=== PATIENT | female | born 1985 | race Caucasian/White ===

== ENCOUNTER → 2021-08-02 | Outpatient (CLI) | payer OTHER ==
--- NOTE | 2021-08-02 12:31 | US ---
EXAMINATION TYPE: US venous doppler duplex LE DATE OF EXAM: 08/02/2021 9:08 AM COMPARISON: NONE CLINICAL HISTORY: 36-year-old female Type 2 diabetes. Type 2 diabetes. No hx of DVT. Patient does not take blood thinners. SIDE PERFORMED: Bilateral TECHNIQUE: The lower extremity deep venous system is examined utilizing real time linear array sonog wily with graded compression, doppler sonography and color-flow sonography. FINDINGS: VESSELS IMAGED: Common Femoral Vein Deep Femoral Vein Greater Saphenous Vein * Femoral Vein Popliteal Vein Small Saphenous Vein * Proximal Calf Veins (* superficial vessels) Right Leg: No evidence of DVT in veins imaged at this time. Left Leg: No evidence of DVT in veins imaged at this time. IMPRESSION: No evidence for DVT within the bilateral lower extremities imaged from the groin to the upper calves.
--- NOTE | 2021-08-03 09:47 | P.ARTDOP ---
Arterial Doppler LOWER EXTREMITY ARTERIAL DOPPLER: DATE OF SERVICE: 08/02/2021 Reason for study: Right ankle ulcer. Doppler waveforms: Multiphasic bilaterally with good toe waveforms. Pulse volume recording: []. Pressure gradients: None. Ankle-brachial indices: Greater than 1 bilaterally. Toe brachial indices: 0.61 on the right, 0.65 on the left Impression: Normal study.
== END | disposition home or self-care (01) ==
LOC: RADUSWWP 08:38
PROVIDERS: ATTEND Internal Medicine Infectious Disease
DX: E11.622 Type 2 diabetes mellitus with other skin ulcer (principal); E11.65 Type 2 diabetes mellitus with hyperglycemia
CPT/HCPCS: 93922; 93970

== ENCOUNTER → 2021-08-09 | Outpatient (CLI) | payer OTHER ==
--- NOTE | 2021-08-09 10:03 | US ---
EXAMINATION TYPE: US liver DATE OF EXAM: 08/09/2021 COMPARISON: NONE CLINICAL HISTORY: R94.5 abnormal liver function tests. Abnormal LFT's, pt states h/o ETOH abuse EXAM MEASUREMENTS: Liver Length: 19.9 cm Gallbladder Wall: 0.2 cm CBD: 0.2 cm Right Kidney: 12.6 x 4.5 x 4.7 cm Pancreas: wnl, distal body and tail obscured by overlying bowel gas Liver: Enlarged, heterogeneous Gallbladder: wnl Evidence for sonographic Mckeon's sign: No CBD: wnl Right Kidney: wnl Visualized visualized portion of pancreas within normal limits. Liver is heterogeneously hyperechoic. Gallbladder somewhat contracted without intraluminal mobile shadowing gallstones. No right-sided hyd ronephrosis. IMPRESSION: Heterogeneous hyperechoic appearance of liver consistent with diffuse fatty infiltration and/or underlying hepatocellular disease.
== END | disposition home or self-care (01) ==
LOC: RADUSWWP 09:27
PROVIDERS: ATTEND Internal Medicine
DX: R94.5 Abnormal results of liver function studies (principal)
CPT/HCPCS: 76705

== ENCOUNTER 2023-12-30 12:49 | Emergency (ER) | payer SELFPAY ==
[2023-12-30 13:23] VITALS: RESP 16
[2023-12-30 13:29] LABS: Glucose,Whole Blood 334 mg/dL (70-110)
--- NOTE | 2023-12-30 13:34 | ED ---
Neuro HPI - General Chief Complaint: Neuro Symptoms/Deficit Stated Complaint: L hand numbness,Hypertension Time Seen by Provider: 12/30/23 13:13 Source: patient Mode of arrival: ambulatory Limitations: no limitations - History of Present Illness Last Known Well Date: 12/28/23 Last Known Well Time: 22:00 Initial Comments: Patient is a 38-year-old female, past medical history presenting today for left hand numbness. Patient states on 719 her symptoms started with a typical panic attack. She had an episode of nonbloody nonbilious emesis, felt anxious, triggered by pulm life stressors. Sunday morning she noticed left hand numbness upon waking. She thought she had slept on her hand wrong, took her ring off and the left hand numbness persisted today. Feels like tingling. Denies weakness. This morning again had another episode of nonbilious nonbloody bilious emesis. Tingling in her left hand persisted and seem to spread up to her distal wrist. She called a friend whose friend is a nurse and directed patient to the emergency department. Patient denies slurred speech, changes in vision, numbness or weakness elsewhere, lightheadedness, dizziness, palpitations, chest pain, shortness of breath, headache, fevers, abdominal pain, diarrhea. She has no history of prior strokes. Does not taking medications every day. Typically for anxiety she will sometimes smoke marijuana or take a T HC gummy. - Related Data Home Medications: Home Medications Medication Instructions Recorded Confirmed No Known Home Medications 12/30/23 12/30/23 Allergies/Adverse Reactions: Allergies Allergy/AdvReac Type Severity Reaction Status Date / Time No Known Allergies Allergy Verified 12/30/23 14:19 Review of Systems ROS Statement: Those systems with pertinent positive or pertinent negative responses have been documented in the HPI. ROS Other: All systems not noted in ROS Statement are negative. Constitutional: Reports: chills. Denies: fever, weakness Eyes: Denies: vision change Cardiovascular: Denies: chest pain, palpitations, dyspnea on exertion Gastrointestinal: Reports: nausea, vomiting. Denies: abdominal pain, diarrhea, hematemesis Musculoskeletal: Denies: joint swelling Neurological: Reports: numbness. Denies: headache, weakness, paresthesias, confusion, vertigo Psychiatric: Reports: anxiety General Exam - General Exam Comments Initial Comments: PE: CONSTITUTIONAL: no apparent distress, well appearing SKIN: warm, dry, no jaundice, hives or petechiae EYES: pupils are equally round, extraocular movements intact without nystagmus, clear conjunctiva, non-icteric sclera HENT: normocephalic, atraumatic, moist mucus membranes, oropharynx clear without exudates NECK: Nontender and supple with no nuchal rigidity, no lymphadenopathy, full range of motion. Carotid bruits. PULMONARY: clear to auscultation without wheezes, rhonchi, or rales, normal excursion, no accessory muscle use and no stridor CARDIOVASCULAR: regular rate, rhythm, normal S1 and S2. No appreciated murmurs. Strong radial pulses with intact distal perfusion GASTROINTESTINAL: soft, non-tender, non-distended, no palpable masses, no rebound or guarding LYMPHATICS: no edema in lower extremities, no lymphadenopathy MUSCULOSKELETAL: Extremities have no gross deformity, no edema, redness, or swelling. Left hand and wrist has no deformity, is nontender to palpation, no evidence of injury NEUROLOGIC: _a/o x 3, GCS 15, normal mentation and speech. Moves all extremities x 4 without motor or sensory deficit, with exception of left hand numbness noted below Cranial nerves: II (visual villarreal without defects), III, IV and (extraocular movements are intact, pupils are equal with normal reaction to light), V (intact facial sensation and jaw opening), VII (no facial droop), IX and X (normal palate movement, midline uvula, normal voice), XI (symmetrical shoulder shrug and lateral head rotation against resistance), XII (midline tongue protrusion). Motor strength is 5/5 in all extremities. Equal printed circuit board designer strength bilaterally. No abnormal movements. Normal muscle tone. Sensation to light touch is intact bilat erally, with exception of left hand. Endorses decrease sensation throughout entire left hand, both palmar and dorsal aspects, sensation intact and equal in remainder of extremity proximal to this. No cerebellar signs ([id number], [id number] are normal) PSYCHIATRIC: _normal mood and affect, thought process is clear and linear Limitations: no limitations Stroke MDM - Lab Data Result diagrams: 12/30/23 13:43 12/30/23 13:43 Lab Results 12/30/23 12/30/23 12/30/23 Range/Units 13:26 13:43 13:43 WBC 5.1 (3.8-10.6) k/uL RBC 4.22 (3.80-5.40) m/uL Hgb 14.1 (11.4-16.0) gm/dL Hct 41.3 (34.0-46.0) % MCV 97.9 (80.0-100.0) fL MCH 33.4 (25.0-35.0) pg MCHC 34.1 (31.0-37.0) g/dL RDW 11.8 (11.5-15.5) % Plt Count 127 L (150-450) k/uL MPV 8.8 Neutrophils % 61 % Lymphocytes % 29 % Monocytes % 5 % Eosinophils % 3 % Basophils % 0 % Neutrophils # 3.1 (1.3-7.7) k/uL Lymphocytes # 1.5 (1.0-4.8) k/uL Monocytes # 0.3 (0-1.0) k/uL Eosinophils # 0.2 (0-0.7) k/uL Basophils # 0.0 (0-0.2) k/uL PT 10.8 (10.0-12.5) sec INR 1.0 (<1.2) APTT 22.3 (22.0-30.0) sec Sodium (137-145) mmol/L Potassium (3.5-5.1) mmol/L Chloride (98-107) mmol/L Carbon Dioxide (22-30) mmol/L Anion Gap mmol/L BUN (7-17) mg/dL Creatinine (0.52-1.04) mg/dL Est GFR (CKD-EPI)AfAm (>60 ml/min/1.73 sqM) Est GFR (CKD-EPI)NonAf (>60 ml/min/1.73 sqM) Glucose (74-99) mg/dL POC Glucose (mg/dL) 334 H (70-110) mg/dL POC Glu Supervisor Body Assembly ID [email or web address] canoel Calcium (8.4-10.2) mg/dL Total Bilirubin (0.2-1.3) mg/dL AST (14-36) U/L ALT (4-34) U/L Alkaline Phosphatase (38-126) U/L Creatine Kinase (30-135) U/L Troponin I (0.000-0.034) ng/mL Total Protein (6.3-8.2) g/dL Albumin (3.5-5.0) g/dL TSH (0.465-4.680) mIU/L HCG, Qual Urine Color Urine Appearance (Clear) Urine pH (5.0-8.0) Ur Specific [place] (1.001-1.035) Urine Protein (Negative) Urine Glucose (UA) (Negative) Urine Ketones (Negative) Urine Blood (Negative) Urine Nitrite (Negative) Urine Bilirubin (Negative) Urine Urobilinogen (<2.0) mg/dL Ur Leukocyte Esterase (Negative) Urine RBC (0-5) /hpf Urine WBC (0-5) /hpf Ur Squamous Epith Cells (0-4) /hpf Urine Bacteria (None) /hpf 12/30/23 12/30/23 12/30/23 Range/Units 13:43 13:43 16:18 WBC (3.8-10.6) k/uL RBC (3.80-5.40) m/uL Hgb (11.4-16.0) gm/dL Hct (34.0-46.0) % MCV (80.0-100.0) fL MCH (25.0-35.0) pg MCHC (31.0-37.0) g/dL RDW (11.5-15.5) % Plt Count (150-450) k/uL MPV Neutrophils % % Lymphocytes % % Monocytes % % Eosinophils % % Basophils % % Neutrophils # (1.3-7.7) k/uL Lymphocytes # (1.0-4.8) k/uL Monocytes # (0-1.0) k/uL Eosinophils # (0-0.7) k/uL Basophils # (0-0.2) k/uL PT (10.0-12.5) sec INR (<1.2) APTT (22.0-30.0) sec Sodium 136 L (137-145) mmol/L Potassium 4.0 (3.5-5.1) mmol/L Chloride 102 (98-107) mmol/L Carbon Dioxide 24 (22-30) mmol/L Anion Gap 10 mmol/L BUN 7 (7-17) mg/dL Creatinine 0.49 L (0.52-1.04) mg/dL Est GFR (CKD-EPI)AfAm >90 (>60 ml/min/1.73 sqM) Est GFR (CKD-EPI)NonAf >90 (>60 ml/min/1.73 sqM) Glucose 317 H (74-99) mg/dL POC Glucose (mg/dL) (70-110) mg/dL POC Glu Supervisor Body Assembly ID Calcium 9.4 (8.4-10.2) mg/dL Total Bilirubin 1.4 H (0.2-1.3) mg/dL AST 301 H (14-36) U/L ALT 198 H (4-34) U/L Alkaline Phosphatase 93 (38-126) U/L Creatine Kinase 132 (30-135) U/L Troponin I <0.012 (0.000-0.034) ng/mL Total Protein 7.5 (6.3-8.2) g/dL Albumin 4.3 (3.5-5.0) g/dL TSH 1.490 (0.465-4.680) mIU/L HCG, Qual Not Detected Urine Color Light Yellow Urine Appearance Clear (Clear) Urine pH 7.0 (5.0-8.0) Ur Specific [place] >1.050 H (1.001-1.035) Urine Protein Trace H (Negative) Urine Glucose (UA) 3+ H (Negative) Urine Ketones Negative (Negative) Urine Blood Moderate H (Negative) Urine Nitrite Negative (Negative) Urine Bilirubin Negative (Negative) Urine Urobilinogen <2.0 (<2.0) mg/dL Ur Leukocyte Esterase Moderate H (Negative) Urine RBC 2 (0-5) /hpf Urine WBC 1 (0-5) /hpf Ur Squamous Epith Cells 12 H (0-4) /hpf Urine Bacteria Rare H (None) /hpf - NIH Stroke Scale 1a. Level of Consciousness: (0) alert 1b. LOC Questions: (0) answers correctly 1c. LOC Commands: (0) performs tasks correctly 2. Best Gaze: (0) normal 3. Visual: (0) no visual loss 4. Facial Palsy: (0) normal symmetrical movement 5a. Motor Arm Left: (0) no drift 5b. Motor Arm Right: (0) no drift 6a. Motor Leg Left: (0) no drift 6b. Motor Leg Right: (0) no drift 7. Limb Ataxia: (0) absent 8. Sensory: (1) mild/moderate sensory loss (descreased sensation in left hand compared to right) 9. Best Language: (0) no aphasia 10. Dysarthria: (0) normal 11. Extinction/Inattention: (0) no abnormality - Thrombolytic Inclusion/Exclusion Thrombolytic Exclusion Criteria: Symptom Onset > 4.5 Hours - Medical Decision Making Was pt. sent in by a medical professional or institution (, PA, FOOD PROCESSING CHEMIST, urgent care, hospital, or senior care...) When possible be specific @ -[No] Did you speak to anyone other than the patient for history (EMS, parent, family, police, friend...)? What history was obtained from this source @ -[No] Did you review nursing and triage notes (agree or disagree)? Why? @ -[I reviewed and agree with nursing and triage notes] Were old charts reviewed (outside hosp., previous admission, EMS record, old EKG, old radiological studies, urgent care reports/EKG's, senior care records)? Report findings @ -[No old charts were reviewed] Differential Diagnosis (chest pain, altered mental status, abdominal pain women, abdominal pain men, vaginal bleeding, weakness, fever, dyspnea, syncope, headache, dizziness, GI bleed, back pain, seizure, CVA, palpatations, mental health, musculoskeletal)? @ -Differential diagnosis remains broad however top considerations include peripheral neuropathy, recent CVA, intracranial mass, [hypertensive emergency], anxiety, electrolyte abnormality, this is meant to be an all-inclusive list EKG interpreted by me (3pts min.). @ -[As above] X-rays interpreted by me (1pt min.). @ -[None done] CT interpreted by me (1pt min.). @ -[None done] U/S interpreted by me (1pt. min.). @ -[None done] What testing was considered but not performed or refused? (CT, X-rays, U/S, labs)? Why? @ -[None] What meds were considered but not given or refused? Why? @ -[None] Did you discuss the management of the patient with other professionals (professionals i.e. , BETO, FOOD PROCESSING CHEMIST, lab, RT, psych nurse, web content & social media manager, telephone information supervisor, teacher, lead security officer, immigration case worker)? Give summary @ -[No] Was smoking cessation discussed for >3mins.? @ -[No] Was critical care preformed (if so, how long)? @ -[No] Were there social determinants of health that impacted care today? How? (Homelessness, low income, unemployed, alcoholism, drug addiction, transportation, low edu. Level, literacy, decrease access to med. care, fpc, rehab)? @ -[No] Was there de-escalation of care discussed even if they declined (Discuss DNR or withdrawal of care, Hospice)? DNR status @ -[No] What co-morbidities impacted this encounter? (DM, HTN, Smoking, COPD, CAD, Cancer, CVA, ARF, Chemo, Hep., AIDS, mental health diagnosis, sleep apnea, morbid obesity)? @ -[None] Was patient admitted / discharged? Hospital course, mention meds given and route, prescriptions, significant lab abnormalities, going to OR and other pertinent info. @ -[hospital course] Patient is a 38-year-old female presenting today for greater than 24 hours of left hand numbness, feels likely secondary to anxiety, presents at direction of friend friend who is a nurse. Patient alert was not called on the patient due to duration of symptoms and low NIH. Physical exam significant for decree sensation to palmar and dorsal aspects of left hand, does not appear to follow dermatomal distribution. No injury or tenderness palpation of the left hand or wrist. No tenderness with patient throughout the neck. Patient currently denies neck pain. No carotid bruits. Differential diagnosis of breath, will ob tain CT brain, CTA neck, troponin, chest x-ray, coagulation studies, TSH, CBC, CMP, IV fluids, Valium. Patient is hypertensive on arrival and tachycardic. Does not take Urinalysis reviewed, shows blood leukocyte esterase, glucose, patient denies dysuria or urinary frequency. He is currently menstruating. Discussed hyperglycemia and the importance of following with primary care provider. Kayla ent was also placed in a small wrist splint out of concern that symptoms could be secondary to carpal tunnel syndrome. Discussed with patient signs symptoms when to return to the ER In my medical judgment there is currently no evidence of an immediate life- threatening or surgical condition. Discharge is therefore indicated at this time. [Discharge treatment instructions, follow up instructions, and appropriate emergency department return precautions were discussed with the patient and/or m edical decision maker. Patient and/or medical decision maker expressed understanding of and agreed with the treatment plan, follow up instructions, and emergency department return precaution. All patient's and/or medical decision maker's questions were answered.] [The patient was advised that a small risk still exists that a serious condition could develop and was therefore instructed to return to the ED for any changes in symptoms, persistent symptoms, inability to obtain proper follow-up or for any further concerns. Patient received verbal and written instructions for this condition.] Undiagnosed new problem with uncertain prognosis? @ -[No] Drug Therapy requiring intensive monitoring for toxicity (Heparin, Nitro, Insulin, Cardizem)? @ -[No] Were any procedures done? @ -[No] Diagnosis/symptom? @ -[default] Acute, or Chronic, or Acute on Chronic? @ -[default] Uncomplicated (without systemic symptoms) or Complicated (systemic symptoms)? @ -[default] Side effects of treatment? @ -[No] Exacerbation, Progression, or Severe Exacerbation? @ -[No] Poses a threat to life or bodily function? How? (Chest pain, [place], [place], pneumonia, PE, COPD, DKA, ARF, appy, cholecystitis, CVA, Diverticulitis, Homicidal, Suicidal, threat to staff... and all critical care pts) @ -[No] Sinus rhythm Heart rate 97 bpm NH 169 ms QT/QTc 346/400 ms Normal axis Artifact present no ST elevations or depressions, no arrhythmia No EKG for comparison Past Medical History Past Medical History: Diabetes Mellitus Past Surgical History: No Surgical Hx Reported Past Psychological History: Anxiety Smoking Status: Current every day smoker Past Alcohol Use History: Daily Past Drug Use History: Marijuana Course Vital Signs 12/30/23 12/30/23 12/30/23 12:52 13:06 15:00 Temperature 98.4 F 99.9 F H 98.7 F Pulse Rate 106 H 104 H 93 Respiratory 18 16 16 Rate Blood Pressure 185/86 171/96 146/74 O2 Sat by Pulse 98 96 95 Oximetry - Reevaluation(s) Reevaluation #1: Platelets 127, sodium 136, GFR greater than 90, glucose 317, total bilirubin 1.4, AST/ALT 301/198. Ordered ultrasound of the liver and gallbladder. Though liver enzyme elevations do appear consistent with alcohol use 12/30/23 14:13 Reevaluation #2: Analysis reviewed, shows specific gravity greater than 1.050, trace protein, 3+ glucose, moderate ketones, moderate leukocyte esterase 12/30/23 16:47 Disposition Clinical Impression: Numbness of left hand, Hyperglycemia, Elevated liver enzymes Disposition: HOME SELF-CARE Condition: Good Additional Instructions: Every disease is a spectrum and a small chance still exists that a serious condition could develop, for this reason, please monitor yourself closely for new, changing or worsening symptoms, symptoms that persist beyond 72 hours, failure symptoms to improve, slurred speech, changes in vision, new numbness or weakness, facial droop, sudden onset headache or headache that you have never had before, fever, chest pain, shortness of breath, inability to tolerate/keep down fluids or your medications, inability to follow up with outpatient providers as instructed and should you experience these symptoms or should you have any further concerns for your wellbeing please return to the ED or call 911 immediately. Please maintain wrist [place] wrap as needed for comfort, and at night . Please try to cut back on alcohol intake gradually Please follow-up with one of the primary care providers listed to establish with a PCP PLEASE call your primary care physician as soon as possible to arrange / discuss plan for followup appointment. Appointment in the next 1-3 days is strongly encouraged if possible. PLEASE let us know here before you leave if there is anything further we can do to be of any assistance. Take care and feel Better! Is patient prescribed a controlled substance at d/c from ED?: No Referrals: Aminta Ferrari NPC [REFERRING] - 1-2 days Kyrie Ayala DO [REFERRING] - 1-2 days Forms: [facility], [facility]
[2023-12-30 13:55] LABS: Basophils % (A) 0 %; Eosinophils # (A) 0.2 k/uL (0-0.7); Eosinophils % (A) 3 %; HCT 41.3 % (34.0-46.0); HGB 14.1 gm/dL (11.4-16.0); Lymphocytes # (A) 1.5 k/uL (1.0-4.8); Lymphocytes % (A) 29 %; MCH 33.4 pg (25.0-35.0); MCHC 34.1 g/dL (31.0-37.0); MCV 97.9 fL (80.0-100.0); Mean Platelet Volume 8.8; Monocytes # (A) 0.3 k/uL (0-1.0); Monocytes % (A) 5 %; Neutrophils # (A) 3.1 k/uL (1.3-7.7); Neutrophils % (A) 61 %; Platelet Count 127 k/uL (150-450); RBC 4.22 m/uL (3.80-5.40); RDW 11.8 % (11.5-15.5); WBC 5.1 k/uL (3.8-10.6)
[2023-12-30 14:09] LABS: ALT 198 U/L (4-34); AST 301 U/L (14-36); African American GFR (CKD) >90 (>60 ml/min/1.73 sqM); Albumin 4.3 g/dL (3.5-5.0); Alkaline Phosphatase 93 U/L (38-126); Anion Gap 10 mmol/L; Blood Urea Nitrogen 7 mg/dL (7-17); Calcium 9.4 mg/dL (8.4-10.2); Carbon Dioxide 24 mmol/L (22-30); Chloride 102 mmol/L (98-107); Creatine Kinase 132 U/L (30-135); Glucose 317 mg/dL (74-99); Non-African American GFR(CKD) >90 (>60 ml/min/1.73 sqM); Sodium 136 mmol/L (137-145); Total Bilirubin 1.4 mg/dL (0.2-1.3); Total Protein 7.5 g/dL (6.3-8.2)
[2023-12-30 14:20] LABS: Partial Thromboplastin Time 22.3 sec (22.0-30.0); Prothrombin Time 10.8 sec (10.0-12.5)
[2023-12-30 14:24] LABS: HCG,Qualitative Serum Not Detected
[2023-12-30] MEDS: diazePAM 5 MG TAB PO STA (14:52)
[2023-12-30 15:03] VITALS: BP 146/74; PULSE 93; TEMP 98.7
--- NOTE | 2023-12-30 15:03 | CT ---
EXAMINATION TYPE: CT brain wo con CT DLP: 1162.6 mGycm, Automated exposure control for dose reduction was used. DATE OF EXAM: 12/30/2023 2:55 PM COMPARISON: None. CLINICAL INDICATION:Female, 38 years old with history of left hand numbness, HTN, tingling and numbne ss in hands and moving up her arms TECHNIQUE: Brain: Axial CT images of the brain were obtained with coronal and sagittal reformats created and rev iewed. Contrast used: None. Oral contrast used: None. FINDINGS: Brain: Extra-axial spaces: No abnormal extra-axial fluid collections. Ventricular system: Within normal limits Cerebral parenchyma: No acute intraparenchymal hemorrhage or mass effect. The ahuja-white junction is well differentiated. Cerebellum: Unremarkable. Mass effect: No evidence of midline shift. Intracranial vasculature: unremarkable Soft tissues: Normal. Calvarium/osseous structures: No depressed skull fracture. Paranasal sinuses and mastoid air cells: Mild scattered paranasal sinus disease. Visualized orbits: Orbital contents are intact. IMPRESSION: No acute intracranial process.
--- NOTE | 2023-12-30 15:06 | CT ---
EXAMINATION TYPE: CT angio head neck CT DLP: 618.8 mGycm, Automated exposure control for dose reduction was used. DATE OF EXAM: 12/30/2023 2:55 PM COMPARISON: None . CLINICAL INDICATION:Female, 38 years old with history of left hand numbness x 24 hours; PHH, tingling and numbness in hands and moving up her arms TECHNIQUE: Axially acquired helical CT angiogram of the head and neck was obtained with contrast. Axi al images are supplemented with 3D reconstructions and MIP images which were post-processed at an in dependent workstation. NASCET criteria used. Contrast used:65 mL of Isovue 370 with IV Contrast, Oral contrast used: None. FINDINGS: CTA HEAD: No evidence of acute intracranial hemorrhage, mass effect, or midline shift. The ventricles, sulci, a nd cisterns are unremarkable. The visualized portions of the internal carotid arteries, middle cerebral arteries, anterior cerebral arteries, and posterior cerebral arteries are patent. The basilar and vertebral arteries are patent. CTA NECK: Right Carotid System: The common carotid artery and external carotid artery are patent. The carotid bifurcation demonstrate s no evidence of hemodynamically significant stenosis. The remaining portions of the internal carotid artery demonstrate normal size without significant narrowing. Left Carotid System: The common carotid artery and external carotid artery are patent. The carotid bifurcation demonstrate s no evidence of hemodynamically significant stenosis. The remaining portions of the internal carotid artery demonstrate normal size without significant narrowing. Vertebral arteries are patent without evidence hemodynamically significant stenosis. There is a three-vessel aortic arch. The origins of the great vessels are patent. No evidence of hemo dynamically significant stenosis. Upper thorax: Right by 5 mm thyroid nodule. IMPRESSION: 1. No evidence of dissection of the cervical internal carotid arteries or vertebral arteries or any e vidence of significant stenosis at the carotid bifurcations. 2. No evidence of intracranial high-grade stenosis or intracranial aneurysm.
--- NOTE | 2023-12-30 15:17 | US ---
EXAMINATION TYPE: US liver DATE OF EXAM: 12/30/2023 COMPARISON: None CLINICAL INDICATION: Female, 38 years old with history of elevated LFTs; abn labs. N/V. TECHNIQUE: Multiple sonographic images of the right upper quadrant are obtained. FINDINGS: EXAM MEASUREMENTS: Liver Length: 22.1 cm Gallbladder Wall: 0.2 cm CBD: 0.6 cm Right Kidney: 12.8 x 4.9 x 4.5 cm Pancreas: Head and tail obscured by overlying bowel gas Liver: Enlarged. Heterogenous. Echogenic. Gallbladder: No stones or wall thickening seen Evidence for sonographic Mckeon's sign: neg CBD: wnl Right Kidney: No hydronephrosis or masses seen IMPRESSION: 1. No evidence for acute process. 2. Hepatic steatosis.
[2023-12-30] MEDS: SODIUM CHLORIDE 0.9% 1,000 ML IV STA (15:40)
--- NOTE | 2023-12-30 16:01 | XR ---
EXAMINATION TYPE: XR chest 2V DATE OF EXAM: 12/30/2023 3:51 PM CLINICAL INDICATION:Female, 38 years old with history of left hand numbness, stroke risk factors scre en; PHH COMPARISON: None TECHNIQUE: XR chest 2V Frontal view of the chest. FINDINGS: Lungs/Pleura: There is no evidence of pleural effusion, focal consolidation, or pneumothorax. Pulmonary vascularity: Unremarkable. Heart/mediastinum: Cardiomediastinal silhouette is unremarkable. Musculoskeletal: No acute osseous pathology. IMPRESSION: No acute cardiopulmonary disease/process.
[2023-12-30 16:37] LABS: Appearance,Urine Clear (Clear); Bacteria,Urine Rare /hpf; Bilirubin,Urine Negative (Negative); Blood,Urine Moderate (Negative); Color,Urine Light Yellow; Glucose,Urine (UA) 3+ (Negative); Ketones,Urine Negative (Negative); Leukocyte Esterase,Urine Moderate (Negative); Nitrite,Urine Negative (Negative); Protein,Urine Trace (Negative); RBC,Urine 2 /hpf (0-5); Specific Gravity,Urine >1.050 (1.001-1.035); Squamous Epithelial Cell,Urine 12 /hpf (0-4); Urobilinogen,Urine <2.0 mg/dL (<2.0); WBC,Urine 1 /hpf (0-5)
== END 2023-12-30 17:21 | disposition home or self-care (01) ==
LOC: EC 12:49
DX: R20.0 Anesthesia of skin (principal); E11.65 Type 2 diabetes mellitus with hyperglycemia; R74.01 Elevation of levels of liver transaminase levels; F17.200 Nicotine dependence, unspecified, uncomplicated
CPT/HCPCS: 36415; 93005; 80053; 82550; 84443; 84484; 85025; 85610; 85730; 81001; 84703; 71046; 76705; 70496; 70450; 70498; 99284; 96360; Q9967